=== PATIENT | female | born 1975 | race Hispanic/Latino ===

== ENCOUNTER 2019-01-18 10:49 | Emergency (ER) | payer SELFPAY ==
--- NOTE | 2019-01-18 11:40 | RAD REPORT ---
EXAM DESCRIPTION: CT - Head Brain Wo Cont - 01/18/2019 11:28 am CLINICAL HISTORY: paresthesias to top of head COMPARISON: None. TECHNIQUE: Axial 5 mm thick images of the head were obtained without IV contrast. All CT scans are performed using dose optimization technique as appropriate and may include automated exposure control or mA/KV adjustment according to patient size. FINDINGS: No intracranial hemorrhage, mass, edema or shift of mid-line structures. No acute infarcti on changes seen. No abnormal extra-axial fluid collections. Ventricles are normal. Mastoid air cells and visualized portions of the paranasal sinuses are clear. No acute bony findings. IMPRESSION: Negative non-contrast CT head examination.
--- NOTE | 2019-01-18 12:16 | EDPHYS ---
Physician Documentation [facility] Name: Tricia Palma Age: 43 yrs Sex: Female : 1975 Arrival Date: 01/18/2019 Time: 10:53 Bed 12 Private MD: ED Physician Mikey Mosley HPI: 01/18 12:12 This 43 yrs old Female presents to ER via Ambulatory with complaints of kb Diabetic. 12:13 The patient's problem is reported as paresthesias, top of head. Onset: The kb symptoms/episode began/occurred this morning. Duration: The episode is continuous. Context: symptoms became apparent upon waking, occurred at home, occurred while the patient was at rest. The symptoms are alleviated by nothing. The symptoms are aggravated by nothing. Associated signs and symptoms: Pertinent positives: nausea, "hot sweats when walking". Severity of symptoms: At their worst the symptoms were moderate in the emergency department the symptoms are unchanged. Patient's baseline: Neuro: alert and fully oriented, Motor: no deficits, Ambulation: walks without assistance, Speech: normal. The patient has not experienced similar symptoms in the past. The patient has not recently seen a physician. Pt reports tingling to top of head that started this morning. States she had some nausea and "hot sweats when she walked," but that has resolved. States her sugar was higher than normal today, but she's never had this symptom so she wanted to get checked out.. Historical: - Allergies: 11:00 No Known Allergies; hb - Home Meds: 11:00 Metformin Oral [Active]; hb - PMHx: 11:00 Diabetes - NIDDM; hb - PSHx: 11:00 None; hb - Immunization history:: Adult Immunizations up to date. - Social history:: Smoking status: Patient/guardian denies using tobacco. - Ebola Screening: : No symptoms or risks identified at this time. ROS: 12:11 Constitutional: Negative for fever, chills, and weight loss, Neck: Negative for injury, kb pain, and swelling, Cardiovascular: Negative for chest pain, palpitations, and edema, Respiratory: Negative for shortness of breath, cough, wheezing, and pleuritic chest pain, Abdomen/GI: Negative for abdominal pain, nausea, vomiting, diarrhea, and constipation, Back: Negative for injury and pain, : Negative for injury, bleeding, discharge, and swelling, MS/Extremity: Negative for injury and deformity, Skin: Negative for injury, rash, and discoloration. 12:11 Neuro: Positive for paresthesias to top of head. Exam: 12:11 Constitutional: This is a well developed, well nourished patient who is awake, alert, kb and in no acute distress. Head/Face: Normocephalic, atraumatic. ENT: Nares patent. No nasal discharge, no septal abnormalities noted. Tympanic membranes are normal and external auditory canals are clear. Oropharynx with no redness, swelling, or masses, exudates, or evidence of obstruction, uvula midline. Mucous membranes moist. Neck: Trachea midline, no thyromegaly or masses palpated, and no cervical lymphadenopathy. Supple, full range of motion without nuchal rigidity, or vertebral point tenderness. No Meningismus. Chest/axilla: Normal chest wall appearance and motion. Nontender with no deformity. No lesions are appreciated. Cardiovascular: Regular rate and rhythm with a normal S1 and S2. No gallops, murmurs, or rubs. Normal PMI, no JVD. No pulse deficits. Respiratory: Lungs have equal breath sounds bilaterally, clear to auscultation and percussion. No rales, rhonchi or wheezes noted. No increased work of breathing, no retractions or nasal flaring. Abdomen/GI: Soft, non-tender, with normal bowel sounds. No distension or tympany. No guarding or rebound. No evidence of tenderness throughout. Back: No spinal tenderness. No costovertebral tenderness. Full range of motion. Skin: Warm, dry with normal turgor. Normal color with no rashes, no lesions, and no evidence of cellulitis. MS/ Extremity: Pulses equal, no cyanosis. Neurovascular intact. Full, normal range of motion. Neuro: Awake and alert, GCS 15, oriented to person, place, time, and situation. Cranial nerves II-XII grossly intact. Motor strength 5/5 in all extremities. Sensory grossly intact. Cerebellar exam normal. Normal gait. 12:16 Radiologist reports: no acute findings kb Vital Signs: 10:58 BP 128 / 78; Pulse 86; Resp 16; Temp 98.4; Pulse Ox 100% on R/A; Weight 96.62 kg; hb Height 5 ft. 4 in. (162.56 cm); Pain 7/10; 10:58 Body Mass Index 36.56 (96.62 kg, 162.56 cm) hb NIH Stroke Scale Scores: 12:12 NIHSS Score: 0 kb MDM: 11:02 Patient medically screened. kb 12:11 Data reviewed: vital signs, nurses notes. Data interpreted: Pulse oximetry: on room air kb is 100 %. Interpretation: normal. Counseling: I had a detailed discussion with the patient and/or guardian regarding: the historical points, exam findings, and any diagnostic results supporting the discharge/admit diagnosis, lab results, radiology results, the need for outpatient follow up, a family practitioner. 01/18 11:11 Order name: Glucose, Ancillary Testing; Complete Time: 11:15 EDMS 01/18 11:15 Order name: CT Head Brain wo Cont; Complete Time: 11:55 kb Administered Medications: No medications were administered Point of Care Testing: Blood Glucose: 10:58 Blood Glucose: 186 mg/dL; hb Ranges: Critical Glucose Levels:Adult <50 mg/dl or >400 mg/dl <40 mg/dl or >180 mg/dl Disposition: 21:52 Co-signature as Attending Physician, Mikey Mosley MD I agree with the assessment and wa plan of care. Disposition: 01/18/19 12:16 Discharged to Home. Impression: Paresthesia of skin. - Condition is Stable. - Discharge Instructions: Paresthesia, [id number]. - Medication Reconciliation Form, Thank You Letter, Antibiotic Education, Prescription Opioid Use, Work release form, Family Work Release form. - Follow up: Emergency Department; When: As needed; Reason: Worsening of condition. Follow up: Private Physician; When: 2 - 3 days; Reason: Recheck today's complaints, Continuance of care, Re-evaluation by your physician. NIH Stroke Scale - NIH Stroke Score Date: 01/18/2019 Time: 12:12 Total Score = 0 1a. Level of Consciousness (LOC) - 0(Alert) 1b. Level of Consciousness (LOC) (Year \\T\\ Age) - 0(Both) 1c. LOC Commands (Open \\T\\ Closes Eyes/Network Desktop Support Specialist) - 0(Both) 2. Best Gaze (Lateral Gaze Paresis) - 0(Normal) 3. Visual Field Loss - 0(No visual loss) 4. Facial Palsy - 0(Normal) 5a. Left Arm: Motor (10-second hold) - 0(No drift) 5b. Right Arm: Motor (10-second hold) - 0(No drift) 6a. Left Leg: Motor (5-second hold - always test supine) - 0(No drift) 6b. Right Leg: Motor (5-second hold - always test supine) - 0(No drift) 7. Limb Ataxia (finger/nose \\T\\ heel/mejía - test with eyes open) - 0(Absent) 8. Sensory Loss (pinprick arms/legs/face) - 0(Normal) 9. Best Language: Aphasia (description/naming/reading) - 0(No aphasia) 10. Dysarthria (speech clarity - read or repeat words) - 0(Normal) 11. Extinction and Inattention (visual/tactile/auditory/spatial/personal) - 0(No abnormality) Initials: kb Signatures: Dispatcher [employer] EDMS Nidhi Ordoñez, ANA SCRIPT COORDINATOR-Stefanie Rodríguez RN RN Amirah Licea RN RN [facility]bor[facility] MD MD id Corrections: (The following items were deleted from the chart) 12:33 12:16 01/18/2019 12:16 Discharged to Home. Impression: Paresthesia of skin. ss Condition is Stable. Forms are Medication Reconciliation Form, Thank You Letter, Antibiotic Education, Prescription Opioid Use. Follow up: Emergency Department; When: As needed; Reason: Worsening of condition. Follow up: Private Physician; When: 2 - 3 days; Reason: Recheck today's complaints, Continuance of care, Re-evaluation by your physician. kb
--- NOTE | 2019-01-18 12:16 | ER ---
Nurse's Notes [facility] Name: Tricia Palma Age: 43 yrs Sex: Female : 1975 Arrival Date: 01/18/2019 Time: 10:53 Bed 12 Private MD: Diagnosis: Paresthesia of skin Presentation: 01/18 10:55 Presenting complaint: Patient states: I feel cold and like I am having a hot flash at the same time, pressure all over my face and my sugar was 173. Transition of care: patient was not received from another setting of care. Onset of symptoms was January 18, 2019. Risk Assessment: Do you want to hurt yourself or someone else? Patient reports no desire to harm self or others. Care prior to arrival: None. 10:55 Method Of Arrival: Ambulatory hb 10:55 Acuity: BEULAH 4 hb Triage Assessment: 11:00 General: Appears in no apparent distress. Behavior is calm, cooperative. Pain: Pain hb currently is 7 out of 10 on a pain scale. EENT: No signs and/or symptoms were reported regarding the EENT system. Neuro: Level of Consciousness is awake, alert, obeys commands, Oriented to person, place, time, situation. Cardiovascular: Capillary refill < 3 seconds Patient's skin is warm and dry. Respiratory: Airway is patent Respiratory effort is even, unlabored, Respiratory pattern is regular, symmetrical. GI: No signs and/or symptoms were reported involving the gastrointestinal system. : No signs and/or symptoms were reported regarding the genitourinary system. Derm: Skin is pink, warm \T\ dry. Musculoskeletal: No signs and/or symptoms reported regarding the musculoskeletal system. Historical: - Allergies: 11:00 No Known Allergies; hb - Home Meds: 11:00 Metformin Oral [Active]; hb - PMHx: 11:00 Diabetes - NIDDM; hb - PSHx: 11:00 None; hb - Immunization history:: Adult Immunizations up to date. - Social history:: Smoking status: Patient/guardian denies using tobacco. - Ebola Screening: : No symptoms or risks identified at this time. Screenin:00 Abuse screen: Denies threats or abuse. Denies injuries from another. Nutritional hb screening: No deficits noted. Tuberculosis screening: No symptoms or risk factors identified. Fall Risk None identified. Assessment: 11:00 General: see triage assessment. hb 12:22 Reassessment: Patient appears in no apparent distress at this time. Patient and/or ss family updated on plan of care and expected duration. Pain level reassessed. Patient is alert, oriented x 3, equal unlabored respirations, skin warm/dry/pink. Vital Signs: 10:58 BP 128 / 78; Pulse 86; Resp 16; Temp 98.4; Pulse Ox 100% on R/A; Weight 96.62 kg; hb Height 5 ft. 4 in. (162.56 cm); Pain 7/10; 10:58 Body Mass Index 36.56 (96.62 kg, 162.56 cm) hb NIH Stroke Scale Scores: 12:12 NIHSS Score: 0 kb ED Course: 10:53 Patient arrived in ED. mr 10:58 Triage completed. hb 11:00 Arm band placed on. hb 11:00 Patient has correct armband on for positive identification. Call light in reach. hb 11:02 Nidhi Ordoñez FNP-C is [facility]. kb 11:02 Mikey Mosley MD is Attending Physician. kb 11:28 CT Head Brain wo Cont In Process Unspecified. EDMS 12:22 Stefanie Mahajan, OSCAR is Primary Nurse. ss 12:22 No provider procedures requiring assistance completed. Patient did not have IV access ss during this emergency room visit. Administered Medications: No medications were administered Point of Care Testing: Blood Glucose: 10:58 Blood Glucose: 186 mg/dL; hb Ranges: Outcome: 12:16 Discharge ordered by . kb 12:22 Discharged to home ambulatory. ss 12:22 Condition: good 12:22 Discharge instructions given to patient, Instructed on discharge instructions, follow up and referral plans. Demonstrated understanding of instructions, follow-up care. 12:33 Patient left the ED. NIH Stroke Scale - NIH Stroke Score Date: 01/18/2019 Time: 12:12 Total Score = 0 1a. Level of Consciousness (LOC) - 0(Alert) 1b. Level of Consciousness (LOC) (Year \T\ Age) - 0(Both) 1c. LOC Commands (Open \T\ Closes Eyes/Traveler Changer) - 0(Both) 2. Best Gaze (Lateral Gaze Paresis) - 0(Normal) 3. Visual Field Loss - 0(No visual loss) 4. Facial Palsy - 0(Normal) 5a. Left Arm: Motor (10-second hold) - 0(No drift) 5b. Right Arm: Motor (10-second hold) - 0(No drift) 6a. Left Leg: Motor (5-second hold - always test supine) - 0(No drift) 6b. Right Leg: Motor (5-second hold - always test supine) - 0(No drift) 7. Limb Ataxia (finger/nose \T\ heel/mejía - test with eyes open) - 0(Absent) 8. Sensory Loss (pinprick arms/legs/face) - 0(Normal) 9. Best Language: Aphasia (description/naming/reading) - 0(No aphasia) 10. Dysarthria (speech clarity - read or repeat words) - 0(Normal) 11. Extinction and Inattention (visual/tactile/auditory/spatial/personal) - 0(No abnormality) Initials: kb Signatures: Dispatcher [employer] EDMS Nidhi Ordoñez, SUPERVISOR LOGGING-C SUPERVISOR LOGGING-Ckb Lynnette Pepe mr Stefanie Mahajan RN RN Amirah Licea RN RN hb Corrections: (The following items were deleted from the chart) 11:00 10:55 Presenting complaint: Patient states: I feel cold and like I am having a hb hot flash at the same time, i feel needle pricks all over my face and my sugar was 173. hb 11:00 10:55 Acuity: BEULAH 3 hb hb
[2019-01-18 12:40] VITALS: BP 128/78; TEMP 98.4; O2SAT 100
== END 2019-01-18 12:33 | disposition home or self-care (01) ==
LOC: ER 10:49
DX: R20.2 Paresthesia of skin (principal); E11.9 Type 2 diabetes mellitus without complications
CPT/HCPCS: 70450; 82947; 99283